=== PATIENT | female | born 1970 | race Caucasian/White ===

== ENCOUNTER 2016-07-09 07:23 | Day surgery (SDCO) | payer OTHER ==
[2016-07-10 06:04] LABS: BASOPHIL 0.2 % (0-2); EOSINOPHIL 0.1 % (0-5); HCT 36.7 % (37.0-47.0); HGB 12.3 g/dl (12.5-16.0); LYMPHOCYTE 26.3 % (15-48); MCH 28.7 pg (25.0-31.0); MCHC 33.5 g/dL (32.0-36.0); MCV 85.5 fL (78.0-100.0); MPV 12.1 fL (6.0-9.5); NEUTROPHIL 65.4 % (41-80); PLT 170 K/uL (150-400); RBC 4.29 M/uL (4.20-5.40); RDW 13.4 % (11.5-14.0); WBC 12.3 K/uL (4.0-10.5)
[2016-07-10] MEDS ORDERED: MOTRIN600 MG PO (10:59)
[2016-07-10] MEDS ORDERED: COLACE100 MG PO (11:00)
[2016-07-10] MEDS ORDERED: PROAIR HFA8.5 GM INH (11:01)
[2016-07-10] MEDS ORDERED: PERCOCET 5/3251 TAB PO (11:01)
[2016-07-10] MEDS ORDERED: LEXAPRO20 MG PO (11:01)
[2016-07-10] MEDS ORDERED: SINGULAIR10 MG PO (11:02)
[2016-07-10] MEDS ORDERED: HYOSCYAMINE PO (11:02)
[2016-07-10] MEDS ORDERED: FLONASE ALLER15.8 ML (11:03)
[2016-07-10] MEDS ORDERED: CLARITIN10 MG PO (11:03)
[2016-07-10] MEDS ORDERED: SYNTHROID75 MCG PO (11:04)
[2016-07-10] MEDS ORDERED: MOBIC7.5 MG PO (11:05)
[2016-07-10] MEDS ORDERED: SYNTHROID100 MCG PO (11:05)
[2016-07-10] MEDS ORDERED: TAMOXIFEN CITRA20 MG PO (11:05)
[2016-07-10] MEDS ORDERED: CELEBREX **OUT100 MG PO (11:07)
[2016-07-10] MEDS ORDERED: NEURONTIN100 MG PO (11:08)
[2016-07-10] MEDS ORDERED: BYDUREON2 MG SQ (11:08)
[2016-07-10] MEDS ORDERED: TYLENOL #31 EACH PO (11:09)
[2016-07-10] MEDS ORDERED: NYSTATIN 30GM C30 GM TOP (11:09)
[2016-07-10] MEDS ORDERED: VITAMIN D2000 UNI1 PO (11:10)
[2016-07-10] MEDS ORDERED: MULTIVIT-FLUORID1 M1 PO (11:11)
[2016-07-10] MEDS ORDERED: TOPIRAMATE100 MG PO (11:12)
[2016-07-10] MEDS ORDERED: [UNRECOGNIZED DRUG - OTHER] PO (11:12)
[2016-07-10] MEDS ORDERED: ATROVENT (00.2 MG/ML INH (11:13)
[2016-07-10] MEDS ORDERED: MINIPRESS5 MG PO (11:15)
[2016-07-10] MEDS ORDERED: MICRONASE5 MG PO (11:15)
== END 2016-07-10 11:38 | disposition home or self-care (01) ==
LOC: FAS 07:23 → EDSTATUS 08:00 → FAS 08:00 → FMS 11:44
PROVIDERS: ADMIT Obstetrics & Gynecology
DX: N72 Inflammatory disease of cervix uteri (principal); N84.0 Polyp of corpus uteri; D25.9 Leiomyoma of uterus, unspecified; N83.8 Other noninflammatory disorders of ovary, fallopian tube and broad ligament; G40.909 Epilepsy, unspecified, not intractable, without status epilepticus; K76.0 Fatty (change of) liver, not elsewhere classified; E11.9 Type 2 diabetes mellitus without complications; E03.9 Hypothyroidism, unspecified; E78.00 Pure hypercholesterolemia, unspecified; J80 Acute respiratory distress syndrome; G47.30 Sleep apnea, unspecified; F44.9 Dissociative and conversion disorder, unspecified; F41.9 Anxiety disorder, unspecified; F32.9 Major depressive disorder, single episode, unspecified; F42.9 Obsessive-compulsive disorder, unspecified; F43.10 Post-traumatic stress disorder, unspecified; E66.01 Morbid (severe) obesity due to excess calories; Z68.42 Body mass index [BMI] 45.0-49.9, adult; Z90.49 Acquired absence of other specified parts of digestive tract; Z90.89 Acquired absence of other organs; Z91.040 Latex allergy status; Z88.2 Allergy status to sulfonamides; Z88.5 Allergy status to narcotic agent; Z88.8 Allergy status to other drugs, medicaments and biological substances; Z91.018 Allergy to other foods; Z87.01 Personal history of pneumonia (recurrent); Z82.61 Family history of arthritis; Z83.49 Family history of other endocrine, nutritional and metabolic diseases; Z81.8 Family history of other mental and behavioral disorders; Z84.89 Family history of other specified conditions; Z79.899 Other long term (current) drug therapy; Z98.890 Other specified postprocedural states
CPT/HCPCS: 36415; 84703; 85025; 86850; 86900; 86901; 88307; 94010; 94640; 94762; C9113; G0378; J0131; J0690; J1100; J1885; J2405; J2704; J2710; J3010

== ENCOUNTER 2016-08-15 17:37 | Emergency (ER) | payer OTHER ==
[~2016-08-15 17:37] MED LIST: ATROVENT (00.2 MG/ML INH; BYDUREON2 MG SQ; CELEBREX **OUT100 MG PO; CLARITIN10 MG PO; COLACE100 MG PO; FLONASE ALLER15.8 ML; HYOSCYAMINE PO; LEXAPRO20 MG PO; MICRONASE5 MG PO; MINIPRESS5 MG PO; MOBIC7.5 MG PO; MOTRIN600 MG PO; MULTIVIT-FLUORID1 M1 PO; NEURONTIN100 MG PO; NYSTATIN 30GM C30 GM TOP; PERCOCET 5/3251 TAB PO; PROAIR HFA8.5 GM INH; SINGULAIR10 MG PO; SYNTHROID100 MCG PO; SYNTHROID75 MCG PO; TAMOXIFEN CITRA20 MG PO; TOPIRAMATE100 MG PO; TYLENOL #31 EACH PO; VITAMIN D2000 UNI1 PO; [UNRECOGNIZED DRUG - OTHER] PO
[2016-08-15 19:13] LABS: BILIRUBIN NEGATIVE (NEGATIVE); BLOOD NEGATIVE Ery/uL (NEGATIVE); CLARITY CLEAR (CLEAR); COLOR YELLOW (YELLOW); GLUCOSE (U) NORMAL (NORMAL); KETONE (U) NEGATIVE (NEGATIVE); LEUKOCYTES NEGATIVE Leu/uL (NEGATIVE); NITRITE NEGATIVE (NEGATIVE); PROTEIN NEGATIVE (NEGATIVE); UROBILINOGEN 0.2 mg/dL (0.2-1.0)
== END 2016-08-15 20:19 | disposition home or self-care (01) ==
LOC: FER 17:37
PROVIDERS: Nurse Practitioner
DX: K58.9 Irritable bowel syndrome, unspecified (principal); F79 Unspecified intellectual disabilities; R22.43 Localized swelling, mass and lump, lower limb, bilateral; Z79.899 Other long term (current) drug therapy; Z87.42 Personal history of other diseases of the female genital tract; Z87.19 Personal history of other diseases of the digestive system; Z90.710 Acquired absence of both cervix and uterus; Z88.2 Allergy status to sulfonamides; Z88.6 Allergy status to analgesic agent; Z91.040 Latex allergy status
CPT/HCPCS: 81003; 87210